=== PATIENT | male | born 1970 | race Caucasian/White ===

== ENCOUNTER → 2021-12-17 12:49 | Outpatient (REF) | payer MEDICAID, SELFPAY ==
--- NOTE | 2021-12-17 | ECG_ITS ---
Test Reason : CP Blood Pressure : / mmHG Vent. Rate : 071 BPM Atrial Rate : 071 BPM P-R Int : 152 ms QRS Dur : 080 ms QT Int : 390 ms P-R-T Axes : 064 040 054 degrees QTc Int : 423 ms Normal sinus rhythm Normal ECG When compared with ECG of 30-MAY-2015 14:27, ST no longer elevated in Lateral leads Referred By: Velma Hernandez Electronically Signed By:Will Yuan
--- NOTE | ~2021-12-17 | XR_ITS ---
EXAMINATION: XR ANKLE, RIGHT CLINICAL INFORMATION: Pain in the right ankle. COMPARISON: None TECHNIQUE: AP, lateral, and mortise views of the right ankle. FINDINGS: There is bilateral soft tissue swelling. No acute fracture. On the lateral radiograph, there is a small bony density seen just behind the posterior malleolus of questionable significance possibly secondary to old trauma. Alignment is anatomic. Joint spaces are maintained. No joint effusion. XR/XR ankle RT min 3V IMPRESSION: Soft tissue swelling without acute fracture.
== END ==
LOC: HO.CARD 12:49
PROVIDERS: Absent Provider Student in an Organized Health Care Education/Training Program; PCP Student in an Organized Health Care Education/Training Program; Visit Provider Family Medicine
DX: M25.571 Pain in right ankle and joints of right foot (principal); F11.20 Opioid dependence, uncomplicated
CPT/HCPCS: 73610; 93005